=== PATIENT | female | born 1975 | race Caucasian/White ===

== ENCOUNTER 2016-10-27 22:30 | Emergency (ER) | payer OTHER ==
[2016-10-27 22:45] VITALS: BP 108/80; PULSE 78; TEMP 97.6; BMI 26.0
--- NOTE | 2016-10-27 22:49 | PDOC ---
History of Present Illness - General History Source: Patient Exam Limitations: No Limitations - History of Present Illness Timing/Duration: 1 week Severity: mild <Katina Baker - Last Filed: 10/28/16 00:34> <Tiago Bryant - Last Filed: 11/04/16 00:42> - General Chief Complaint: Pain Stated Complaint: TOOTH PAIN Time Seen by Provider: 10/27/16 22:48 Past History - Travel Traveled outside of the country in the last 30 days: No Close contact w/someone who was outside of country & ill: No - Immunization History Immunization Up to Date: No - Psycho/Social/Smoking Cessation Hx Anxiety: No Suicidal Ideation: No Smoking History: Never smoked Have you smoked in the past 12 months: No Information on smoking cessation initiated: No Hx Alcohol Use: No Drug/Substance Use Hx: No Substance Use Type: None <Katina Baker - Last Filed: 10/28/16 00:34> <Tiago Bryant - Last Filed: 11/04/16 00:42> - Past Medical History Allergies/Adverse Reactions: Allergies Allergy/AdvReac Type Severity Reaction Status Date / Time No Known Allergies Allergy Verified 10/27/16 22:45 Home Medications: Ambulatory Orders Acetaminophen [Tylenol] 650 mg PO PRN 10/28/16 Penicillin V Potassium [Pen Vee K -] 500 mg PO TID #21 tablet 10/28/16 Review of Systems - Review of Systems Able to Perform ROS?: Yes Comments:: 10/28/16 00:34 CONSTITUTIONAL: Absent: fever, chills, diaphoresis, generalized weakness, malaise, loss of appetite HEENT: left upper 2nd and 3rd molar toothache Absent: rhinorrhea, nasal congestion, throat pain, throat swelling, difficulty swallowing, mouth swelling, ear pain, eye pain, visual Changes CARDIOVASCULAR: Absent: chest pain, loss of consciousness, palpitations, irregular heart rate, peripheral edema RESPIRATORY: Absent: cough, shortness of breath, dyspnea with exertion, orthopnea, wheezing, stridor, hemoptysis GASTROINTESTINAL: Absent: abdominal pain, abdominal distension, nausea, vomiting, diarrhea, constipation, melena, hematochezia Is the patient limited Romanian proficient: No <Katina Baker - Last Filed: 10/28/16 00:34> *Physical Exam - Vital Signs Last Vital Signs Temp Pulse Resp BP Pulse Ox 97.6 F 78 18 108/80 98 10/27/16 22:43 10/27/16 22:43 10/27/16 22:43 10/27/16 22:43 10/27/16 22:43 - Physical Exam Comments: 10/28/16 00:35 GENERAL: Well developed, well nourished. Awake and alert. No acute distress. HEENT: +pain to left upper 2nd and 3rd molar on percussion/ decay noted Normocephalic, atraumatic. PERRLA, EOMI. No conjunctival pallor. Sclera are non- icteric. Moist mucous membranes. Oropharynx is clear. NECK: Supple. Full ROM. No JVD. Carotid pulses 2+ and symmetric, without bruits. No thyromegaly. No lymphadenopathy. CARDIOVASCULAR: Regular rate and rhythm. No murmurs, rubs, or gallops. Distal pulses are 2+ and symmetric. PULMONARY: No evidence of respiratory distress. Lungs clear to auscultation bilaterally. No wheezing, rales or rhonchi. ABDOMINAL: Soft. Non-tender. Non-distended. No rebound or guarding. No organomegaly. Normoactive bowel sounds. <Katina Baker - Last Filed: 10/28/16 00:34> - Vital Signs Last Vital Signs Temp Pulse Resp BP Pulse Ox 97.6 F 78 18 108/80 98 10/27/16 22:43 10/27/16 22:43 10/27/16 22:43 10/27/16 22:43 10/27/16 22:43 <Tiago Bryant - Last Filed: 11/04/16 00:42> ED Treatment Course - Medications Given in the ED: ED Medications Discontinued Medications Generic Name Dose Route Start Last Admin Trade Name Freq PRN Reason Stop Dose Admin Ibuprofen 800 mg 10/28/16 00:44 10/28/16 00:44 Motrin - PO 10/28/16 00:45 800 mg NOW ONE Administration Penicillin V Potassium 500 mg 10/28/16 00:30 10/28/16 00:40 Pen Vee K - PO 10/28/16 00:31 500 mg ONCE ONE Administration <Tiago Bryant - Last Filed: 11/04/16 00:42> Medical Decision Making - Medical Decision Making 11/04/16 00:42 ED Attending: I was available for involvement of this case as needed; supervised MLP. <Tiago Bryant - Last Filed: 11/04/16 00:42> *DC/Admit/Observation/Transfer - Discharge Dispostion Admit: No <Katina Baker - Last Filed: 10/28/16 00:34> <Tiago Bryant - Last Filed: 11/04/16 00:42> Diagnosis at time of Disposition: Toothache - Discharge Dispostion Disposition: HOME Condition at time of disposition: Stable - Prescriptions Prescriptions: Penicillin V Potassium [Pen Vee K -] 500 mg PO TID #21 tablet - Referrals Referrals: STAFF,NOT ON [Primary Care Provider] - - Patient Instructions Printed Discharge Instructions: Tooth Decay Additional Instructions: [facility] Contact Information: * [address] [place], [place] - [address] Be sure to follow up with the dental clinic tylenol/motrin as needed for pain Rx: take your antibiotics as prescribed Return to the ER for severe/persistent/worsening symptoms Progress Note - Progress Note Progress Note: 41-year-old female presents to the emergency department complaining of left upper second and third molar toothache 1 week. Patient denies any fever, chills , nausea/vomiting, sore throat, difficulty swallowing, chest pain or shortness of breath. <Katina Baker - Last Filed: 10/28/16 00:34>
--- NOTE | 2016-10-28 00:05 | PDOC ---
*Physical Exam - Vital Signs Last Vital Signs Temp Pulse Resp BP Pulse Ox 97.6 F 78 18 108/80 98 10/27/16 22:43 10/27/16 22:43 10/27/16 22:43 10/27/16 22:43 10/27/16 22:43 Medical Decision Making - Medical Decision Making 10/28/16 00:04 Pt seen by the Advanced Practice Provider under my direct supervision Ancillary studies reviewed I agree with plan as outlined by the Advanced Practice Provider TESS Baker *DC/Admit/Observation/Transfer Diagnosis at time of Disposition: Toothache - Discharge Dispostion Disposition: HOME Condition at time of disposition: Stable - Prescriptions Prescriptions: Penicillin V Potassium [Pen Vee K -] 500 mg PO TID #21 tablet - Referrals Referrals: STAFF,NOT ON [Primary Care Provider] - - Patient Instructions Printed Discharge Instructions: Tooth Decay Additional Instructions: [facility] Contact Information: * [address] [place] - [address] Be sure to follow up with the dental clinic tylenol/motrin as needed for pain Rx: take your antibiotics as prescribed Return to the ER for severe/persistent/worsening symptoms
[2016-10-28] MEDS ORDERED: PENICILLIN V POTASSIUM 500 MG TABLET PO ONE (00:30)
[2016-10-28] MEDS ORDERED: IBUPROFEN 400 MG TABLET (FP) PO ONE ×2 (00:42→00:44)
== END 2016-10-28 00:45 | disposition home or self-care (01) ==
LOC: SUPCPDRO 22:30 → JER 22:30
DX: K08.89 Other specified disorders of teeth and supporting structures (principal)
CPT/HCPCS: 99282-25

== ENCOUNTER 2018-06-25 09:34 | Emergency (ER) | payer SELFPAY ==
[2018-06-25 10:09] VITALS: BP 101/64; PULSE 74; TEMP 98.5; BMI 26.4
[2018-06-25] MEDS ORDERED: IBUPROFEN 600 MG TABLET (FP) PO ONE ×2 (10:30→10:33)
--- NOTE | 2018-06-25 10:31 | PDOC ---
History of Present Illness - General Chief Complaint: Sore Throat Stated Complaint: SORE THROAT Time Seen by Provider: 06/25/18 10:12 History Source: Patient Exam Limitations: Language Barrier (Occlutechracom used, [id number]: citizen of [place]) - History of Present Illness Initial Comments: 06/25/18 12:05 Patient is a 43-year-old female no past medical history who presents to the emergency department today for sore throat 3 days. Patient states she also has an associated dry cough, postnasal drip and earache. Denies fevers, chills, chest pain, shortness of breath, nausea, vomiting and diarrhea. Past History - Travel Traveled outside of the country in the last 30 days: No Close contact w/someone who was outside of country & ill: No - Past Medical History Allergies/Adverse Reactions: Allergies Allergy/AdvReac Type Severity Reaction Status Date / Time No Known Allergies Allergy Verified 10/27/16 22:45 Home Medications: Ambulatory Orders Ibuprofen 600 mg PO Q6H #30 tablet 06/25/18 COPD: No - Immunization History Immunization Up to Date: No - Suicide/Smoking/Psychosocial Hx Smoking History: Never smoked Have you smoked in the past 12 months: No Hx Alcohol Use: No Drug/Substance Use Hx: No Substance Use Type: None Review of Systems - Review of Systems Able to Perform ROS?: Yes Comments:: 06/25/18 10:33 CONSTITUTIONAL: Absent: fever, chills, diaphoresis, generalized weakness, malaise, loss of appetite HEENT: Present: sore throat, ear ache Absent: rhinorrhea, nasal congestion, throat swelling, difficulty swallowing, mouth swelling, eye pain, visual Changes CARDIOVASCULAR: Absent: chest pain, loss of consciousness, palpitations, irregular heart rate, peripheral edema RESPIRATORY: Present: cough Absent: shortness of breath, dyspnea with exertion, orthopnea, wheezing, stridor, hemoptysis GASTROINTESTINAL: Absent: abdominal pain, abdominal distension, nausea, vomiting, diarrhea, constipation, melena, hematochezia GENITOURINARY: Absent: dysuria, frequency, urgency, hesitancy, hematuria, flank pain, genital pain MUSCULOSKELETAL: Absent: myalgia, arthralgia, joint swelling SKIN: Absent: rash, itching, pallor HEMATOLOGIC/IMMUNOLOGIC: Absent: easy bleeding, easy bruising, lymphadenopathy, frequent infections ENDOCRINE: Absent: unexplained weight gain, unexplained weight loss, heat intolerance, cold intolerance NEUROLOGIC: Absent: headache, focal weakness or paresthesias, dizziness, unsteady gait, seizure, mental status changes, bladder or bowel incontinence PSYCHIATRIC: Absent: anxiety, depression, suicidal or homicidal ideation, hallucinations. Is the patient limited Georgian proficient: No *Physical Exam - Vital Signs Last Vital Signs Temp Pulse Resp BP Pulse Ox 98.5 F 74 16 101/64 100 06/25/18 10:06 06/25/18 10:06 06/25/18 10:06 06/25/18 10:06 06/25/18 10:06 - Physical Exam Comments: 06/25/18 10:33 GENERAL: Well developed, well nourished. Awake and alert. No acute distress. HEENT: Normocephalic, atraumatic. PERRLA, EOMI. No conjunctival pallor. Sclera are non- icteric. Moist mucous membranes. Oropharynx with erythema to the tonsils. No edema or exudates. Uvula is midline. NECK: Supple. Full ROM. No JVD. Carotid pulses 2+ and symmetric, without bruits. No thyromegaly. No lymphadenopathy. CARDIOVASCULAR: Regular rate and rhythm. No murmurs, rubs, or gallops. Distal pulses are 2+ and symmetric. PULMONARY: SKIN: Warm and dry. Normal capillary refill. No rashes. No jaundice. NEUROLOGICAL: Alert, awake, appropriate. Cranial nerves 2-12 intact. No deficits to light touch and temperature in face, upper extremities and lower extremities. No motor deficits in the in face, upper extremities and lower extremities. Normoreflexic in the upper and lower extremities. Normal speech. Toes are down- going bilaterally. Gait is normal without ataxia. PSYCHIATRIC: Cooperative. Good eye contact. Appropriate mood and affect. Medical Decision Making - Medical Decision Making 06/25/18 12:09 Patient is a 43-year-old female who presents to the emergency department with 3 days of sore throat. -On exam patient with erythema to the posterior oropharynx. Uvula is midline no exudate or edema. -Patient with postnasal drip as well. + cough. -Rapid strep is negative. Most likely a viral illness at this time. -We'll discharge home with supportive therapy. -I discussed the physical exam findings, ancillary test results and final diagnoses with the patient. I answered all of the patient's questions. The patient was satisfied with the care received and felt comfortable with the discharge plan and treatment plan. The Patient agrees to follow up with the primary care physician/specialist within 24-72 hours. Return precautions were given. *DC/Admit/Observation/Transfer Diagnosis at time of Disposition: Pharyngitis Qualifiers: Pharyngitis/tonsillitis etiology: unspecified etiology Qualified Code(s): J02.9 - Acute pharyngitis, unspecified - Discharge Dispostion Disposition: HOME Condition at time of disposition: Stable Decision to Admit order: No - Prescriptions Prescriptions: Ibuprofen 600 mg PO Q6H #30 tablet - Referrals Referrals: Antione Frazier MD [Staff Physician] - - Patient Instructions Printed Discharge Instructions: DI for Pharyngitis/Tonsillopharyngitis -- Adult Additional Instructions: You have pharyngitis or a sore throat. Your strep testing was negative today. You most likely have a virus. Please take Motrin 600 mg every 6 hours as needed for pain not to exceed 3000 mg a day. Drink plenty of fluids. Cough drops and warm tea may help your symptoms as well. Change your tooth brush in 3 days to prevent reinfection Please follow up with her primary care doctor this week. Return to the emergency department if you have difficulty breathing, shortness of breath, worsening pain, nausea, vomiting or if you have any changes in your symptoms. Usted tiene faringitis o dolor de garganta. Tu prueba de estreptococo fue negativa hoy. Es muy probable que tenga un virus. [place] Motrin 600 mg cada 6 horas segn sea necesario para que el dolor no exceda los 3000 mg al da. Beber mucho lquido. Las gotas para la tos y el t caliente tambin pueden ayudar a aliviar chapin sntomas. Cambia tu cepillo de dientes en 3 castle para prevenir la reinfeccin. Por favor moris un seguimiento con [place] mdico de atencin primaria esta semana. Regrese a la fabricio de emergencias si tiene dificultad para respirar, dificultad para respirar, empeoramiento del dolor, nuseas, vmitos o si tiene algn cambio en chapin sntomas. Print Language: DANISH - Post Discharge Activity Forms/Work/School Notes: Back to Work
== END 2018-06-25 11:41 | disposition home or self-care (01) ==
LOC: JERFT 09:34
DX: J02.9 Acute pharyngitis, unspecified (principal)
CPT/HCPCS: 87070; 87430; 99281-25

== ENCOUNTER 2022-01-22 15:46 | Emergency (ER) | payer OTHER ==
[2022-01-22 16:02] VITALS: BP 118/75; PULSE 79; TEMP 97; BMI 27.0
[2022-01-22] MEDS ORDERED: diphenhydrAMINE HCL 50 MG CAPSULE PO ONE (18:28)
[2022-01-22] MEDS ORDERED: DEXAMETHASONE 4 MG TABLET (FP) PO ONE (18:36)
[2022-01-22] MEDS ORDERED: DEXAMETHASONE SOD PHOSPHATE 10 MG/1 ML VIAL ONE (19:15)
[2022-01-22] MEDS ORDERED: diphenhydrAMINE HCL 25 MG CAPSULE (FP) PO ONE (19:15)
== END 2022-01-22 20:16 | disposition home or self-care (01) ==
LOC: JERFT 15:46
DX: L25.8 Unspecified contact dermatitis due to other agents (principal)
CPT/HCPCS: 99283-25

== ENCOUNTER 2022-10-06 13:44 | Emergency (ER) | payer OTHER ==
[2022-10-06 13:48] VITALS: BP 112/67; PULSE 64; RESP 18; TEMP 98.2; BMI 25.6
[2022-10-06] MEDS ORDERED: SODIUM CHLORIDE 0.9% 500 ML INFUS.BAG IV ONE (14:55)
[2022-10-06] MEDS ORDERED: ACETAMINOPHEN 1000 MG/100 ML BAG IVPB ONE (14:55)
[2022-10-06] MEDS ORDERED: ONDANSETRON 4 MG/2 ML VIAL IVPUSH ONE (15:02)
[2022-10-06] MEDS ORDERED: ACETAMINOPHEN INJECTION 100 ML IVPB ONE (15:13)
[2022-10-06] MEDS ORDERED: ONDANSETRON 4 MG/2 ML VIAL ONE (15:13)
[2022-10-06 15:54] LABS: BASO % 0.7 % (0-2.0); EOS % 2.6 % (0-4.5); HEMATOCRIT 35.5 % (32.4-45.2); HEMOGLOBIN 12.3 GM/dL (10.7-15.3); LYMPH % 35.4 % (8-40); MCH 30.2 pg (25.7-33.7); MCHC 34.6 g/dl (32.0-36.0); MEAN CELL VOLUME 87.3 fl (80-96); MEAN PLT VOLUME 8.2 fl (7.5-11.1); MONO % 6.8 % (3.8-10.2); NEUT % 54.5 % (42.8-82.8); PLATELET COUNT 251 10^3/uL (134-434); RBC 4.07 M/mm3 (3.60-5.2); RDW 13.7 % (11.6-15.6); WHITE BLOOD COUNT 6.5 K/mm3 (4.0-10.0)
[2022-10-06 15:56] LABS: EPI CELLS 8 /uL (0-25.1); HYALINE CASTS 0 /uL (0-3.1); PH,URINE 5.5 (5.0-8.0); URINE APPEARANCE CLEAR; URINE BACTERIA 109 /uL (0-1359); URINE BILIRUBIN NEGATIVE (NEGATIVE); URINE COLOR YELLOW; URINE GLUCOSE (UA) NEGATIVE (NEGATIVE); URINE KETONE NEGATIVE (NEGATIVE); URINE LEUK ESTERASE NEGATIVE (NEGATIVE); URINE NITRITE NEGATIVE (NEGATIVE); URINE PROTEIN NEGATIVE (NEGATIVE); URINE UROBILINOGEN 0.2 mg/dL (0.2-1.0); URINE WBC 7 /uL (0-25.8)
[2022-10-06 16:01] LABS: URINE RBC 36 /uL (0-23.9)
[2022-10-06 16:29] LABS: HCG,QUALITATIVE URINE Negative
[2022-10-06 16:46] LABS: CHLORIDE 106 mmol/L (98-107); SODIUM 137 mmol/L (136-145)
[2022-10-06 16:49] LABS: CALCIUM 8.3 mg/dL (8.5-10.1)
[2022-10-06 16:50] LABS: ANION GAP 5 MMOL/L (8-16); BLOOD UREA NITROGEN 11.6 mg/dL (7-18); CO2 26 mmol/L (21-32); GLUCOSE,RANDOM 84 mg/dL (74-106)
[2022-10-06 16:52] LABS: CREATININE 0.6 mg/dL (0.55-1.3)
[2022-10-06 16:53] LABS: SGOT/AST 24 U/L (15-37); SGPT/ALT 31 U/L (13-61)
[2022-10-06 16:54] LABS: BILIRUBIN,TOTAL 0.4 mg/dL (0.2-1); TOT PROT 7.7 g/dl (6.4-8.2)
[2022-10-06 16:55] LABS: ALK PHOS 86 U/L (45-117)
== END 2022-10-06 20:53 | disposition home or self-care (01) ==
LOC: JER 13:44
PROC: 3E0333Z Introduction of Anti-inflammatory into Peripheral Vein, Percutaneous Approach (ICD-10-PCS; principal; 2022-10-06)
PROC: 3E033GC Introduction of Other Therapeutic Substance into Peripheral Vein, Percutaneous Approach (ICD-10-PCS; 2022-10-06)
DX: R10.12 Left upper quadrant pain (principal)
CPT/HCPCS: 36415; 71046-TC-FY; 74177-TC; 80053; 81003; 82550; 82553; 84484; 84703; 85025; 87086; 93005; 93010; 99285-25

== ENCOUNTER 2022-11-28 03:52 | Day surgery (SDC) | payer OTHER ==
[2022-11-27 12:52] VITALS: BMI 29.7
[2022-11-28 12:31] VITALS: PULSE 63
[2022-11-28 14:13] VITALS: BP 109/83; RESP 21
[2022-11-28 15:01] VITALS: TEMP 97.3
== END 2022-11-28 14:30 | disposition home or self-care (01) ==
LOC: JASU-ENDO 03:52
PROVIDERS: ATTEND Student in an Organized Health Care Education/Training Program
PROC: 0DB68ZX Excision of Stomach, Via Natural or Artificial Opening Endoscopic, Diagnostic (ICD-10-PCS; principal; 2022-11-28 13:00)
DX: K29.50 Unspecified chronic gastritis without bleeding (principal)
CPT/HCPCS: 81025; 88305-TC; 88342-TC

== ENCOUNTER 2023-03-20 07:59 | Day surgery (SDC) | payer OTHER ==
[2023-03-15 09:11] VITALS: BMI 25.1
[2023-03-20 09:25] VITALS: TEMP 98.4
[2023-03-20 09:40] VITALS: RESP 18
[2023-03-20 09:58] VITALS: BP 107/70; PULSE 60
== END 2023-03-20 10:20 | disposition home or self-care (01) ==
LOC: JASU-ENDO 07:59
PROVIDERS: ATTEND Student in an Organized Health Care Education/Training Program
PROC: 0DBK8ZX Excision of Ascending Colon, Via Natural or Artificial Opening Endoscopic, Diagnostic (ICD-10-PCS; principal; 2023-03-20 08:00)
DX: Z12.11 Encounter for screening for malignant neoplasm of colon (principal); D12.2 Benign neoplasm of ascending colon; K57.30 Diverticulosis of large intestine without perforation or abscess without bleeding
CPT/HCPCS: 81025; 88305-TC